=== PATIENT | male | born 1990 | race African-American/Black ===

== ENCOUNTER 2018-02-02 17:27 | Emergency (ER) | payer MEDICAID ==
[~2018-02-02] VITALS: Ht 177.8 cm; Wt 120.0 kg
[2018-02-02] MEDS ORDERED: SODIUM CHLORIDE 0.9% 1,000 ML IV ONE (20:45)
[2018-02-02 22:12] LABS: CLARITY URINE CLEAR (CLEAR); COLOR URINE YELLOW (YELLOW); KETONES URINE NEGATIVE (NEGATIVE); LEUKOCYTE ESTERASE URINE NEGATIVE (NEGATIVE); NITRITE URINE NEGATIVE (NEGATIVE); OCCULT BLOOD URINE NEGATIVE (NEGATIVE); PROTEIN URINE TRACE (NEGATIVE); SPECIFIC GRAVITY URINE 1.015 (1.005-1.030); UROBILINOGEN URINE 0.2 E.U./dL (0.2-1.0)
[2018-02-02 22:24] LABS: *AMPHETAMINES SCREEN URINE NEGATIVE (NEGATIVE); *BARBITURATES SCREEN URINE NEGATIVE (NEGATIVE); *BENZODIAZEPINES SCREEN URINE NEGATIVE (NEGATIVE); *COCAINE SCREEN URINE NEGATIVE (NEGATIVE); METHADONE URINE SCREEN NEGATIVE (NEGATIVE); OPIATES URINE SCREEN NEGATIVE (NEGATIVE)
[2018-02-02 22:25] LABS: CANNABINOID URINE SCREEN NEGATIVE (NEGATIVE); PHENCYCLIDINE URINE SCREEN NEGATIVE (NEGATIVE)
[2018-02-02 22:55] LABS: BASOPHILS % 0.9 % (0.0-2.0); EOSINOPHILS % 0.2 % (0.0-5.0); HEMATOCRIT. 42.4 % (42.0-52.0); HEMOGLOBIN. 14.6 g/dL (14.0-18.0); LYMPHOCYTES % 31.2 % (20.0-50.0); MEAN CORPUSCULAR HEMOGLOBIN 28.3 pg (28.0-32.0); MEAN CORPUSCULAR VOLUME 82.3 fL (80.0-94.0); MEAN PLATELET VOLUME 8.1 fl (7.4-10.4); MONOCYTES % 6.5 % (2.0-8.0); NEUTROPHILS % 61.2 % (40.0-76.0); PLATELET 206 x1000/uL (130-400); RED BLOOD CELL COUNT 5.15 mill/uL (4.7-6.1); RED CELL DISTRIBUTION WIDTH 14.3 % (11.6-14.6)
[2018-02-02 23:00] LABS: CHLORIDE 109 mEq/L (98-107)
[2018-02-02 23:04] LABS: ETHANOL BLOOD < 10 mg/dL
[2018-02-05 12:15] VITALS: BP 125/68
== END 2018-02-05 12:20 | disposition home or self-care (01) ==
LOC: EDBD 17:27 → ER 17:27
DX: F91.8 Other conduct disorders (principal); E87.6 Hypokalemia; G92 Toxic encephalopathy; E87.8 Other disorders of electrolyte and fluid balance, not elsewhere classified
CPT/HCPCS: 36415; 70450; 80048; 80305; 80307; 80329; 81003; 85025; 96360; 96361; 99285; G0482; J7030; Z7610

== ENCOUNTER 2018-06-13 14:24 | Emergency (ER) | payer MEDICAID ==
[~2018-06-13] VITALS: Ht 182.9 cm; Wt 91.0 kg
[2018-06-13] MEDS ORDERED: MAGNESIUM/ALUMINUM HYDROXIDE/SIMETHICONE 30ML UDC PO ONE (15:00)
[2018-06-13] MEDS ORDERED: IBUPROFEN 800MG TABLET PO ONE (15:00)
[2018-06-13] MEDS ORDERED: FAMOTIDINE 20MG TABLET PO ONE (15:00)
[2018-06-13 16:00] LABS: BASOPHILS % 0.5 % (0.0-2.0); HEMATOCRIT. 43.3 % (42.0-52.0); HEMOGLOBIN. 14.8 g/dL (14.0-18.0); LYMPHOCYTES % 18.8 % (20.0-50.0); MEAN CORPUSCULAR HEMOGLOBIN 28.4 pg (28.0-32.0); MEAN CORPUSCULAR VOLUME 83.3 fL (80.0-94.0); MEAN PLATELET VOLUME 8.9 fl (7.4-10.4); MONOCYTES % 4.9 % (2.0-8.0); NEUTROPHILS % 75.8 % (40.0-76.0); PLATELET 216 x1000/uL (130-400); RED BLOOD CELL COUNT 5.19 mill/uL (4.7-6.1); RED CELL DISTRIBUTION WIDTH 14.6 % (11.6-14.6)
[2018-06-13 16:04] LABS: CHLORIDE 102 mEq/L (98-107)
[2018-06-13 16:08] LABS: ETHANOL BLOOD < 10 mg/dL
[2018-06-13 16:13] LABS: CREATINE KINASE 126 IU/L (39-308)
[2018-06-13 16:15] LABS: VALPROIC ACID < 3.0 ug/mL (50-100)
[2018-06-13] MEDS ORDERED: POTASSIUM CHLORIDE 20MEQ TABLET SR PO ONE (16:15)
[2018-06-13] MEDS ORDERED: KCL 20MEQ/100ML PREMIX 100 ML IV ONE (16:30)
[2018-06-13] MEDS ORDERED: LEVETIRACETAM 500MG PREMIX 100 ML IV ONE (16:30)
[2018-06-13] MEDS ORDERED: LORAZEPAM 2MG/ML CPJ IV ONE ×2 (16:30→19:15)
[2018-06-13 16:45] LABS: D-DIMER 0.23 mg/L FEU (<0.50); INR 1.1; PARTIAL THROMBOPLASTIN TIME 28.1 sec (23.4-31.0); PROTHROMBIN TIME 11.3 sec (9.1-11.1)
[2018-06-13] MEDS ORDERED: ONDANSETRON HCL 4MG/2ML INJ IV ONE (19:15)
[2018-06-13] MEDS ORDERED: MORPHINE SULFATE 4 MG/ML CPJ (NOT FOR IM USE) IV ONE (19:15)
[2018-06-13 23:08] VITALS: BP 119/92
== END 2018-06-13 23:45 | disposition home or self-care (01) ==
LOC: ER 14:48
DX: G40.909 Epilepsy, unspecified, not intractable, without status epilepticus (principal); R07.89 Other chest pain; H91.3 Deaf nonspeaking, not elsewhere classified; F31.9 Bipolar disorder, unspecified
CPT/HCPCS: 36415; 70450; 71045; 80053; 80165; 82550; 83690; 83880; 84484; 85025; 85379; 85610; 85730; 93005; 96365; 96375; 96376; 99284; G0482; J1953; J2060; J2270; J2405; J3480